=== PATIENT | female | born 1965 | race Caucasian/White ===

== ENCOUNTER → 2016-09-18 | Outpatient (CLI) | payer OTHER ==
--- NOTE | 2016-09-18 14:16 | DX ---
Bilateral Knees, Three Views Each History: Knee pain. Findings: Postsurgical changes are seen of a right total knee arthroplasty. No evidence for periprost hetic lucency to indicate loosening or fracture. Mild joint narrowing id seen in the patellofemoral c ompartment of the left knee with subarticular cystic change and sclerosis. There is mild subarticular sclerosis and minimal joint narrowing in the medial and lateral compartments of the left knee. No ev idence for acute fracture or dislocation. Mild suprapatellar joint effusion left knee. Impression: Postsurgical change of right total knee arthroplasty without evidence for complication. M ild degenerative change in the left knee more prominent in the patellofemoral compartment with mild j oint effusion.
== END ==
LOC: BMCIMAGING 13:39
PROVIDERS: ATTEND Internal Medicine Rheumatology
DX: M25.561 Pain in right knee (principal); M25.562 Pain in left knee; Z96.651 Presence of right artificial knee joint

== ENCOUNTER → 2017-01-01 | Outpatient (CLI) | payer OTHER | LOC: BMCIMAGING 10:53 | PROVIDERS: ATTEND Family Medicine | DX: R10.2 Pelvic and perineal pain (principal); M25.559 Pain in unspecified hip; W19.XXXA Unspecified fall, initial encounter ==

== ENCOUNTER → 2017-07-25 | Outpatient (CLI) | payer OTHER | LOC: FIMAGING 08:32 | PROVIDERS: ATTEND Family Medicine | DX: Z12.31 Encounter for screening mammogram for malignant neoplasm of breast (principal); Z13.820 Encounter for screening for osteoporosis; M85.89 Other specified disorders of bone density and structure, multiple sites; Z82.62 Family history of osteoporosis | CPT/HCPCS: G0202 ==

== ENCOUNTER → 2018-07-27 | Outpatient (CLI) | payer OTHER | LOC: FIMAGING 09:14 | PROVIDERS: ATTEND Family Medicine | DX: M25.551 Pain in right hip (principal) ==

== ENCOUNTER → 2018-08-30 | Outpatient (CLI) | payer OTHER | LOC: BMCIMAGING 12:23 | PROVIDERS: ATTEND Internal Medicine Rheumatology | DX: Z12.31 Encounter for screening mammogram for malignant neoplasm of breast (principal); Z80.3 Family history of malignant neoplasm of breast ==

== ENCOUNTER → 2019-02-08 | Outpatient (CLI) | payer OTHER | LOC: FIMAGING 12:41 ==

== ENCOUNTER → 2019-02-10 | Outpatient (CLI) | payer OTHER | LOC: EMCIMAGING 12:48 ==